=== PATIENT | female | born 1935 | race Caucasian/White ===

== ENCOUNTER 2020-01-06 10:01 | Outpatient (CLI) | payer MEDICARE, SELFPAY ==
--- NOTE | 2020-01-06 | XR_ITS ---
WS: [id number] Bone mineral density performed on a [employer], 01/06/2020 Clinical data: POST MENOPAUSAL ESTROGEN DEFICIENCY Findings: The first 4 lumbar vertebral bodies demonstrated the bone mineral density of 0.984 g/cm2 for a young adult T score of -1.6. Measurement of the left hip reveals a bone mineral density of 0.552 g/cm2 with a young adult T score of -3.6. Measurement of the right hip reveals the bone mineral density of 0.623 g/cm2 for young adult T score of -3.1. XR/XR DEXA axial skeleton* [id number] Impression: 1. Osteopenia of the lumbar spine. 2. Osteoporosis of both hips.
== END 2020-01-06 10:02 | disposition home or self-care (01) ==
LOC: RADWPI 10:08
PROVIDERS: PCP Family Medicine; Visit Provider Family Medicine
DX: N95.1 Menopausal and female climacteric states (principal); M81.0 Age-related osteoporosis without current pathological fracture; M85.88 Other specified disorders of bone density and structure, other site
CPT/HCPCS: 77080

== ENCOUNTER 2020-04-01 10:49 | Outpatient (CLI) | payer MEDICARE, SELFPAY ==
--- NOTE | 2020-04-01 10:54 | MM_ITS ---
WS: [id number] BILATERAL DIGITAL SCREENING MAMMOGRAM WITH CAD CLINICAL INFORMATION: SCREENING HISTORY: Screening mammogram. No current complaints. COMPARISON: None. TECHNIQUE: Bilateral CC and MLO views. FINDINGS: Fatty-replaced breasts bilaterally. No suspicious focal mass, asymmetry, calcifications, or lead enterprise architect ural distortion. No evidence of malignancy. Punctate and lucent centered calcifications. Vascular festus cification. MM/[place] [id number] IMPRESSION: BI-RADS: 2-Benign FOLLOW UP: 1 Year Follow-up Recommend return to annual screening mammography.
== END 2020-04-01 10:50 | disposition home or self-care (01) ==
LOC: RADSHAW 10:51
PROVIDERS: PCP Family Medicine; Visit Provider Family Medicine
DX: Z12.31 Encounter for screening mammogram for malignant neoplasm of breast (principal)
CPT/HCPCS: 77067

== ENCOUNTER 2020-04-07 14:36 | Outpatient (CLI) | payer MEDICARE, SELFPAY ==
[2020-04-07 14:55] VITALS: BP 148/76; PULSE 82; RESP 18; TEMP 36.8; O2SAT 98
[2020-04-07] MEDS: denosumab 60 mg SDV SUBCUT (15:01)
[2020-04-07 15:17] VITALS: BP 136/86; PULSE 78; RESP 18; TEMP 36.9; O2SAT 95
== END 2020-04-07 14:37 | disposition home or self-care (01) ==
PROVIDERS: PCP Family Medicine; Visit Provider Family Medicine
DX: M81.0 Age-related osteoporosis without current pathological fracture (principal)
CPT/HCPCS: 96372; J0897

== ENCOUNTER 2020-08-16 10:43 | Day surgery (SDC) | payer MEDICARE, SELFPAY ==
--- NOTE | 2020-08-16 10:31 | W.PM.OPSFHP ---
Same Day Surgery H&P Indication for Procedure/HPI DATE OF PROCEDURE: August 16, 2020 CHIEF COMPLAINT/INDICATIONFOR SURGICAL PROCEDURE: Difficulty in swallowing PREOP DIAGNOSIS: Dysphagia/FOOD impaction PLANNED PROCEDRUE: Operation Date: 08/16/20 12:00 Proposed Procedures p EGD R13.10 41311(Not Applicable) - Jeronimo Conrad MD This is a pleasant 85 years old female patient with history of chronic dysphagia. Apparently over the past couple of weeks got worse and yesterday she was having some pork pull for supper and she had one bite and afterwards she had a problem swallowing but she is able to keep her own saliva. Patient was seen before in my practice and she does report history of dentures that they are well fitting and she undergone a modified barium swallow back in 2018 that did show; 1. No tania aspiration was evident. Small amount of microaspiration not completely excluded as there was significant laryngeal penetration and pharyngeal residue. 2. Large hiatal hernia. 3. Esophageal dysmotility and poor emptying of the esophagus. Patient was seen and evaluated by Dr. Booth as he did approach me today because of his concerns about the patient and were able to have the patient come in today for further evaluation and endoscopy. Patient reports no history of hematemesis or hemoptysis, patient denies any other constitutional symptoms. She reports that she had stretch of her esophagus last time was done 4 years ago over [facility] ROS All systems have been reviewed negative except as per the above or per problem list Medications/Allergies* Home Medications Medication Instructions Recorded Confirmed Type acetaminophen [Tylenol] 325 mg PO QID PRN 08/16/20 08/16/20 History cetirizine [Zyrtec] 5 mg PO DAILY 08/16/20 08/16/20 History clonazepam 0.5 mg PO DAILY 08/16/20 08/16/20 History pantoprazole 40 mg PO DAILY 08/16/20 08/16/20 History Allergies/Adverse Reactions Allergy/AdvReac Type Severity Reaction Status Date / Time No Known Allergies Allergy Verified 08/16/20 12:24 Pertinent Exam Findings alert, oriented x 3, clear to auscultation bilaterally (No evidence of surgical emphysema or crepitus), regular rate & rhythm and procedure specific exam findings Recommendations Surgery/Procedure today (EGD with possible biopsy and possible food disimpaction and possible balloon dilation) Other Plans: Plan of care; After thorough history and physical examination and reviewing the chart, plan to perform a diagnostic esophagogastroduodenoscopy with possible biopsy with possible food disimpaction and possible balloon dilation in the GI lab. I discussed with the patient in detail the risk,benefits,alternatives and indications.The risk of aspiration, bleeding, soft tissue injury, perforation of the stomach/esophagus and other potential concomitant complications were explained to the patient in details,aslo the potential need for Thoracic and or Abdominal surgery to repair any complications.The patient understood this well and did agree to proceed. Rationale was carefully and clearly discussed with the patient.Appropriate informed consent have been reviewed and signed All questions have been answered and all concerns have been addressed to patient's satisfaction. Coding Level of Care Code Acute [employer] for Delia Hammer
[2020-08-16 11:31] VITALS: BMI 20.9
--- NOTE | 2020-08-16 11:56 | XR_ITS ---
WS: [id number] Exam: XR chest 2V* [id number] Date/Time of Exam: 08/16/2020 11:56 AM Reason For Exam: FOOD IMPACTION Comparison 05/19/2006. There is atelectasis in the left lower lobe. No infiltrates are seen. The lungs are fully expanded. L arge hiatal hernia. Cardiomediastinal structures are otherwise normal in appearance. Regional bony el ements are intact. XR/XR chest 2V* [id number] IMPRESSION: 1. Left lower lobe atelectasis. 2. Large hiatal hernia.
[2020-08-16] MEDS: sodium chloride 0.9% 1,000 ML 30 ML IV (12:06)
--- NOTE | 2020-08-16 13:28 | ANES.PREANE2 ---
Pre-Anesthetic Assessment Pre-Anesthetic Assessment: Height/Weight: Height 1.6 m Weight 53.524 kg Preop Diagnosis: Dysphagia/FOOD impaction Proposed Procedure: Operation Date: 08/16/20 12:00 Proposed Procedures p EGD R13.10 65083(Not Applicable) - Jeronimo Conrad MD Was Beta Edis taken within 24 hours: N/A Was Clonidine taken within 24 hours: N/A Last intake: Intake Last Liquid Date 08/15/20 Last Solid Date 08/15/20 Social: Social History: Tobacco (h/o smoking quit 30 yrs ago) and No alcohol Exam: Pre-Anes Outpt Exam: alert, oriented x 3 and regular rate & rhythm Airway: Submandibular: WNL Cervical ROM: WNL MP: 2 Dentition: False GI: GI: GERD Neuropsych: Neuropsych: Anxiety Anesthetic Plan: ASA status: 3 Anesthesia: General Risk of > 500 ml blood loss (7ml/kg in children): No Meds/Allergies Current Medications: Current Medications Generic Name Dose Route Start Last Admin Trade Name Freq PRN Reason Stop Dose Admin Sodium Chloride 1,000 mls @ 30 ml s/hr 08/16/20 11:45 08/16/20 12:06 Sodium Chloride 0.9% IV 08/17/20 11:44 30 mls/hr .Q24H JOSEPHINE Administration Data Anesthesia Cardiac Studies: No Data to Display
[2020-08-16 14:15] VITALS: BP 115/67; PULSE 79; RESP 18; TEMP 36.3; O2SAT 98
[2020-08-16 14:27] VITALS: BP 135/82; PULSE 78; RESP 18; O2SAT 98
--- NOTE | 2020-08-16 14:45 | ANE.PACU2 ---
Inpatient post-anesthesia follow up: Airway intact: Yes Vital signs: Temperature 97.4 F Pulse Rate 78 Respiratory Rate 18 Blood Pressure 135/82 Pulse Oximetry 98 Oxygen Delivery Me thod Room Air Oxygen Flow Rate 4 Fraction of Inspir ed Oxygen Hydration adequate: Yes Nausea and vomiting: No Pain level: 1 Mental status: Baseline
== END 2020-08-16 15:01 | disposition home or self-care (01) ==
PROVIDERS: PCP Family Medicine; Visit Provider Surgery
PROC: 0DJ08ZZ Inspection of Upper Intestinal Tract, Via Natural or Artificial Opening Endoscopic (ICD-10-PCS; CPT 43235; principal; 2020-08-16 12:00)
DX: R13.10 Dysphagia, unspecified (principal); T18.128A Food in esophagus causing other injury, initial encounter; K44.9 Diaphragmatic hernia without obstruction or gangrene; K21.9 Gastro-esophageal reflux disease without esophagitis; F41.9 Anxiety disorder, unspecified
CPT/HCPCS: 43239; 43249; 71046; 88305; 96360; 96361; J0330; J2370; J2405; J2704; J7030

== ENCOUNTER 2021-12-20 18:58 | Emergency (ER) | payer MEDICARE, SELFPAY ==
[2021-12-20 19:35] VITALS: BP 150/99; PULSE 98; RESP 16; TEMP 36.6; O2SAT 96; BMI 18.6
[2021-12-20 20:12] VITALS: BP 127/98; PULSE 100; RESP 24; O2SAT 95
--- NOTE | 2021-12-20 20:46 | CTR_ITS ---
PROCEDURE INFORMATION: Exam: CT Neck Without Contrast Exam date and time: 12/20/2021 9:06 PM Age: 86 years old Clinical indication: Dysphagia / difficulty swallowing; Additional info: Globus sensation TECHNIQUE: Imaging protocol: Computed tomography of the neck without contrast. Radiation optimization: All CT scans at this facility use at least one of these dose optimization techniques: automated exposure control; mA and/or kV adjustment per patient size (includes targeted exams where dose is matched to clinical indication); or iterative reconstruction. COMPARISON: CR FL barium swallow modifd [id number] 04/16/2017 1:55 PM RADIATION DOSE METRICS: Total DLP (mGy-cm): 228.76 FINDINGS: Paranasal sinuses: Scattered mucosal thickening in the ethmoid sinuses. Dental: The patient is edentulous. Pharynx: Unremarkable. No significant tonsillar enlargement. Larynx: Unremarkable. Epiglottis is normal. Prevertebral and retropharyngeal spaces: Unremarkable. Salivary glands: Normal. Glands are normal in size. Thyroid: The thyroid is small. There is a 0.7 cm low-density nodule or cyst in the left lobe of the thyroid. Follow-up is not indicated given the patient's age. Lymph nodes: Unremarkable. No lymphadenopathy. Trachea: The airway is widely patent. Lungs: There is subsegmental atelectasis in the left lower lobe near the hernia. Mild centrilobular emphysema. Pleural spaces: There are scattered noncalcified pleural plaques. Bones/joints: Mild chronic degenerative changes in the cervical spine. There is also a high-grade but likely chronic fracture of the T8 vertebral body with 3 mm of bony retropulsion. Vasculature: There are a few incidental gas droplets in the cavernous sinuses, most likely from recent IV placement. Moderate calcified plaque in both carotid bifurcations. Soft tissues: In the left posterior lower cervical subcutaneous fat there is a 7 mm soft tissue nodule. A large hiatus hernia contains most the stomach and measures 12 x 8 cm in axial size and extends beyond the limits of the scan. There is some gas and fluid within the hernia but no evidence of a significant obstruction. CT/CT neck wo con [id number] IMPRESSION: 1. Large hiatus hernia with gas and fluid. No high-grade obstruction, possibly low-grade obstruction. 2. High-grade T8 fracture is probably chronic. Mild bony retropulsion. 3. Other chronic findings as described COMMENTS: Consistent with the [employer]'s Incidental Findings Committee white paper (J Am Beverly Radiol 2015): In patients aged 35 years and older with an incidental thyroid nodule equal to or greater than 1.[address], MRI or extrathyroidal US, further evaluation with dedicated thyroid US is recommended for patients with normal life expectancy and without comorbidities. For smaller nodules without suspicious features, no further evaluation or follow up is recommended.
--- NOTE | 2021-12-20 20:47 | ED_ITS ---
HPI - General Adult General: Chief complaint: General Medical Stated complaint: can't swallow food or liquid Time Seen by Provider: 12/20/21 20:24 Source: patient and family Mode of arrival: ambulatory Limitations: no limitations History of Present Illness: This patient comes to the emergency department because she feels like she cannot swallow normally. She apparently has had these symptoms in the past and has had them most recently over the past several days. She seen her primary care clinic twice over the past 2 days where she had an evaluation and was given a steroid shot today. States that she feels like she has a lot of drainage and has been hoarse over the past 2 weeks. She has had a longstanding history of recurrent yeast infections, acid reflux as well as distal esophageal narrowing this required dilatation however she does not feel as if the symptoms she is currently having are related to her esophageal issues its more in her throat. She denies any choking sensation, foreign body sensation or inability to turn her neck etc. She denies any fevers or chills. No trauma etc. Associated symptoms: Deny chest pain, dyspnea, headache(s), nausea, rash, palpitations or vomiting Review of Systems Const: Denies: fever(s), chills or body aches Eyes: Denies: change in vision ENMT: Reports: throat pain, odynophagia, hoarseness, nasal discharge and post nasal drip; Denies: uvular edema or sinus pain Card: Denies: chest pain, palpitations or irregular heart rhythm Resp: Denies: dyspnea, productive cough or non-productive cough GI: Denies: abdominal pain, nausea or vomiting : Denies: flank pain, difficulty voiding or dysuria Musc: Denies: back pain, extremity pain or extremity swelling Skin/Breast: Denies: rash Neuro: Denies: headache(s), numbness in extremities or weakness in extremities Endo: Denies: polyuria or polydipsia Bhanu/Lymph: Denies: easy bruising PFSH ED PFSH: Medical History Esophageal stricture Hiatal hernia Social History Quit status (tobacco): has quit using tobacco Second hand smoke exposure: No Alcohol intake: never Lives independently: Yes Physical Exam Narrative: EXAM NARRATIVE: Patient is a thin elderly female who speak in rapid voice which is somewhat hoarse and tone. He makes good eye contact. Const: COMMON NORMALS: no acute distress, patient oriented x3 and alert GENERAL APPEARANCE: comfortable and anxious NUTRITIONAL APPEARANCE: thin HENMT: COMMON NORMALS: normocephalic, atraumatic, Normal nasal mucous membranes and turbinates present and moist oral mucous membranes HEAD & SCALP: normocephalic and atraumatic NOSE: Normal nasal mucous membranes and turbinates present THROAT: no uvular edema OTHER: Lamination oropharynx reveals to be grossly normal appearance without exudate. Uvula is midline and not enlarged. There is no pharyngeal masses noted. Her tongue is freely mobile without any induration or swelling. She has dentures both upper and lower. There is evidence of significant mucus pooling in the posterior oropharynx. Is observed to initiate swallowing without difficulty. Eye: COMMON NORMALS: Equal, round and reactive pupils present and EOMs intact bilaterally PUPIL: Yes Equal, round and reactive pupils present Neck/C-Spine: COMMON NORMALS: full ROM, no lymphadenopathy, supple, Thyroid normal and No carotid bruits THYROID: Thyroid normal OTHER: No palpable masses in the neck. With swallowing palpation of her congeal area reveals normal movement. Chest: COMMONS NORMALS: normal inspection of the chest Resp: COMMON NORMALS: normal respiratory effort, No use of accessory muscles and clear to auscultation bilaterally AUSCULTATION: clear to auscultation bilaterally Cardio: COMMON NORMALS: regular rate, regular rhythm, No murmurs present (Cardio) and Peripheral pulses 2+ throughout RATE: regular rate RHYTHM: regular rhythm PERIPHERAL PULSES: Peripheral pulses 2+ throughout GI: COMMON NORMALS: Normal to inspection, nondistended, normoactive bowel sounds present, Soft to palpation and non-tender PALPATION: Yes Soft to palpation : COMMON NORMALS: Yes no CVA tenderness BLADDER/KIDNEY EXAM: Yes no CVA tenderness Back/Pelvis: COMMON NORMALS: no CVA tenderness, thoracic and lumbar spine normal to inspection and no thoracic nor lumbar tenderness Extremity: COMMON NORMALS: normal to inspection, full ROM, no calf tenderness and no pedal edema Neuro: COMMON NORMALS: patient oriented x3, moves all extremities, no focal motor deficits and no sensory deficits noted SENSORIUM/ORIENTATION: Yes alert CRANIAL NERVES: Yes CN normal except as noted Psych: COMMON NORMALS: mental status grossly normal Skin: COMMON NORMALS: no rashes or lesions noted, no wounds and turgor normal GENERAL SKIN EXAM: no rashes or lesions noted and turgor normal Course Reevaluation(s): Reevaluation #1: Patient remains clinically stable. I shared the results of her CT scan with both the patient and her daughter. The more that I interacted with this patient is becomes obvious that there is a significant emotional component to her subjective symptoms. Her CT scan was very reassuring and there is no signs of obstruction mechanically abscess mass etc. He does have a hiatal hernia which is a known feature. Further discussion reveals that she is been very stressed recently over the past few weeks particularly the past couple days because of a recent move. She apparently sleeps on her couch and also does not drink much in the way of water on a daily basis. I shared with her that it is important for her to increase her water intake as well as continue on her other usual medications. We will although I am not confident that she has thrush she has some erythema and and some appearance of her oropharynx with may suggest that condition although she does not take chronic steroids nor does she use nasal steroids. Avoid switch her to an oral antifungal as apparently she was prescribed antifungal tablets which may not have the beneficial or desired effect. She is stable at this time to be discharged home. I encouraged her to use liquid diet avoid hot and cold liquids as well as carbonated beverages. Time: 22:38 Vital Signs: Vital signs: Vital Signs Temperature 97.8 F 12/20/21 19:35 Pulse Rate 84 12/20/21 21:30 Respiratory Rate 25 H 12/20/21 21:30 Blood Pressure 127/79 12/20/21 21:30 Pulse Oximetry 90 12/20/21 21:30 Oxygen Delivery Me thod 12/20/21 21:30 MDM - General Adult Medical Decision Making This patient comes to emergency department with a history of subjective swallowing difficulties. Clinical work-up and radiographic work-up do not reveal any findings that suggest mass-effect, or other physical concerning findings at this time. Her clinical picture history and examination strongly suggest a emotional component related to her physical symptoms. We discussed potential changes in diet etc. and close follow-up with her primary care doctor. We also discussed return precautions with both she and her daughter. Stable at this time. Lab Data I reviewed the patient's lab results. Radiology Impressions Neck CT 12/20/21 20:46 IMPRESSION: 1. Large hiatus hernia with gas and fluid. No high-grade obstruction, possibly low-grade obstruction. 2. High-grade T8 fracture is probably chronic. Mild bony retropulsion. 3. Other chronic findings as described COMMENTS: Consistent with the [employer]'s Incidental Findings Committee white paper (J Am Beverly Radiol 2015): In patients aged 35 years and older with an incidental thyroid nodule equal to or greater than 1.[address], MRI or extrathyroidal US, further evaluation with dedicated thyroid US is recommended for patients with normal life expectancy and without comorbidities. For smaller nodules without suspicious features, no further evaluation or follow up is recommended. Discharge Plan Discharge Patient Disposition: Home Clinical Impression: Odynophagia Condition: Stable Prescriptions: New nystatin 100,000 unit/mL suspension 2.5 ml PO QID 14 Days Qty: 140 0RF Rx Instructions: swish and swallow No Action acetaminophen [Tylenol] 325 mg Tablet 325 mg PO QID PRN (Reason: Pain) montelukast 5 mg tablet,chewable 5 mg PO BID fluconazole 200 mg tablet 200 mg PO DAILY omeprazole 40 mg capsule,delayed release(DR/EC) 40 mg PO BID buspirone 10 mg tablet 5 mg PO BID fluticasone propionate 50 mcg/actuation spray,suspension 2 spray INTRANASAL DAILY Discharge Orders: Discharge ED (Routine); Ordered 12/20/21 Ordered By: Moy Bermeo Referrals: Delmar Ni MD [Primary Care Provider] - 4-7 days (ER follow-up for odynophagia) Discharge Diet: Advance as tolerated and Full LIquid Discharge Activity: Increase activity as tolerated Patient Instructions: Opioid Safety, Pain Management Activity Restrictions/Additional Instructions: We have provided a prescription for liquid antifungal to use for the next 2 weeks. Also encourage you to drink at least 2 quarts of water daily. Also increase your protein calorie intake with using things like Ensure and other liquid protein shakes. Call your primary care doctor for follow-up and or referral to neurosurgery spine physician as indicated. If you develop worsening symptoms or unsuccessful with eating or drinking return to this or the nearest emergency department. Coding Level of Care Code ED Secondary Set Up Man for Delia Fwd Exam Comprehensive
[2021-12-20 21:30] VITALS: BP 127/79; PULSE 84; RESP 25; O2SAT 90
[2021-12-20] MEDS: LORazepam 2 mg/mL oral liquid (mL) 1 MG PO (22:55)
[2021-12-20 23:02] VITALS: BP 143/80; PULSE 86; RESP 22; O2SAT 93
== END 2021-12-20 23:09 | disposition home or self-care (01) ==
PROVIDERS: Emergency Provider Emergency Medicine; PCP Family Medicine
DX: R13.10 Dysphagia, unspecified (principal); Z87.891 Personal history of nicotine dependence
CPT/HCPCS: 70490; 99284; J9352

== ENCOUNTER 2022-01-08 11:36 | Outpatient (CLI) | payer MEDICARE, SELFPAY ==
--- NOTE | 2022-01-08 11:46 | XR_ITS ---
WS: [id number] SCREENING DEXA SCAN [employer] CLINICAL INFORMATION: POSTMENOPAUSAL COMPARISON: 2019 FINDINGS: The L1-L4 bone mineral density measures 0.916. This corresponds to a T score score of -2.4 and Z scor e of 0.1. Left femoral neck bone mineral density measures 0.537 g/cm2. This corresponds to a T score of -3.7 an d Z score of -0.9. Right femoral neck bone mineral density measures 0.643 g/cm2. This corresponds to a T score -2.9of an d Z score of -0.1. Mean femoral neck bone mineral density measures 0.590 g/cm2. This corresponds to a T score of -3.3 an d Z score of -0.5. XR/XR DEXA axial skeleton* [id number] IMPRESSION: Osteopenia lumbar spine at the upper end of the range approaching osteoporosis. Osteoporosis femoral necks. Patient's FRAX calculated 10 year probability for major osteoporotic fracture i s 23.2 % and osteoporotic hip fracture is 8.7%. Bone mineral density in the lumbar spine has decreased -8.7% since 2020. Bone mineral density in the femoral necks has increased 0.5% since 2020
== END 2022-01-08 11:37 | disposition home or self-care (01) ==
LOC: RAD 11:39
PROVIDERS: PCP Family Medicine; Visit Provider Nurse Practitioner Family
DX: Z78.0 Asymptomatic menopausal state (principal); M81.0 Age-related osteoporosis without current pathological fracture; M85.88 Other specified disorders of bone density and structure, other site
CPT/HCPCS: 77080

== ENCOUNTER 2022-03-26 10:26 | Outpatient (CLI) | payer MEDICARE, SELFPAY ==
--- NOTE | 2022-03-26 10:40 | CT_ITS ---
WS: [id number] CT NECK TECHNIQUE: Contrast-enhanced CT of the neck with coronal and sagittal reformatted images. CLINICAL INFORMATION: DYSPHAGIA COMPARISON: None. DLP: 184.[address] [facility] use at least one of these dose optimization techniques: automated e xposure control; mA and/or kV adjustment per patient size (includes targeted exams where dose is matc hed to clinical indication); or iterative reconstruction. FINDINGS: Paranasal sinuses and mastoid air cells well aerated. Mild mucosal thickening ethmoid air cells. Norm al posterior nasopharynx. Normal parapharyngeal fat. Parotid glands are normal. Submandibular glands are normal. No evidence of supraglottic or glottic mass. Ballooning of the RIGHT laryngeal ventricle suspicious for vocal cord paralysis. This appears stable from previous. Partially visualized large esophageal hiatal hernia with intrathoracic stomach. This appears similar to previous. Small bilateral thyroid nodules. Moderate to severe RIGHT carotid bulb calcification wit h ICA stenosis.This can be further evaluated with ultrasound. Mild LEFT carotid bulb calcification. Moderate spondylitic changes cervical spine. No cervical lymphadenopathy. Stable nodule in the subcut aneous soft tissues LEFT lower neck measuring [address]/CT neck w con* [id number] IMPRESSION: 1. Large esophageal hiatal hernia with partial intrathoracic stomach partially visualized. This is similar to previous. 2. Ballooning of the RIGHT laryngeal ventricle suspicious for vocal cord paral ysis unchanged from previous. 3. Otherwise no evidence of supraglottic or glottic mass. 4. Normal salivary glands. 5. No cervical lymphadenopathy. 6. Moderate to severe RIGHT carotid bulb atheromatous disease with ICA stenosi s. This can be further with ultrasound. 7. No other significant changes compared to previous.
[2022-03-26] MEDS: iohexol 350 mg/mL 500 mL Btl (per mL) IV (11:01)
[2022-03-26 11:10] LABS: Blood Urea Nitrogen 4 mg/dL (8-23)
== END 2022-03-26 10:27 | disposition home or self-care (01) ==
LOC: RAD 10:29
PROVIDERS: PCP Family Medicine; Visit Provider Specialist
DX: R13.10 Dysphagia, unspecified (principal)
CPT/HCPCS: 70491; 82565; 84520; Q9967

== ENCOUNTER 2022-04-05 09:45 | Outpatient (CLI) | payer MEDICARE, SELFPAY ==
--- NOTE | 2022-04-05 09:55 | FL_ITS ---
WS: [id number] Barium swallow and esophagram, 04/05/2022 Clinical Data: DYSPHAGIA Comparison: None. Fluoroscopy time: 1min [id number] # of spot films: 6 Findings: The patient swallowed the thick and thin barium, and it flowed through the hypopharynx without hesita tion. No stricture, mass, polyp or erosion was seen. There is no penetration or aspiration. The barium entered the esophagus and there was poor peristalsis. There is a large paraesophageal hiat al hernia.. The entire stomach is located above the diaphragm. In the distal esophagus there was no s tricture, mass, polyp, erosion, ulceration or fistula. There was reflux occurring to the level of the thoracic inlet. FL/FL barium swallow [id number] Impression: 1. Large paraesophageal hiatal hernia. 2. Reflux which occurs to the level of the thoracic inlet. 3. Poor esophageal motility.
== END 2022-04-05 09:46 | disposition home or self-care (01) ==
LOC: RAD 09:48
PROVIDERS: PCP Family Medicine; Visit Provider Specialist
DX: R13.10 Dysphagia, unspecified (principal)
CPT/HCPCS: 74220

== ENCOUNTER → 2022-08-21 09:29 | Outpatient (BNVA) | payer MEDICARE, SELFPAY | PROVIDERS: PCP Family Medicine; Visit Provider Surgery | DX: R13.10 Dysphagia, unspecified (principal) | CPT/HCPCS: 99213 ==

== ENCOUNTER 2022-09-19 06:53 | Day surgery (SDC) | payer MEDICARE, SELFPAY ==
[2022-09-18 08:26] VITALS: BMI 22.4
[2022-09-19 07:07] VITALS: BP 177/107; PULSE 80; RESP 18; TEMP 36.3; O2SAT 94
[2022-09-19] MEDS: sodium chloride 0.9% 1,000 ML 30 ML IV (07:20)
--- NOTE | 2022-09-19 07:42 | ANES.PREANE2 ---
Pre-Anesthetic Assessment Height/Weight: Height 1.55 m Weight 53.977 kg Temp Pulse Resp BP Pulse Ox O2 Del Method 97.3 F L 80 18 177/107 94 Room Air 09/19/22 07:07 09/19/22 07:07 09/19/22 07:07 09/19/22 07:07 09/19/22 07:07 09/19/22 07:07 Preop Diagnosis: Dysphagia Operation Date: 09/19/22 08:00 Proposed Procedures p EGD Dilation W/ Balloon(Not Applicable) - Adria Nguyen DO Familial anesthetic complications: none Was Beta Edis taken within 24 hours: N/A Was Clonidine taken within 24 hours: N/A Last intake: Intake Last Liquid Date 09/18/22 Last Liquid Time 23:00 Last Solid Date 09/18/22 Last Solid Time 17:00 Social No alcohol and No tobacco Airway Submandibular: within normal limits Cervical ROM: within normal limits Mallampati: Class II Dentition: false Pulmonary None reported CV/HEM None reported None reported Hepatic None reported GI Gastroesophageal Reflux Disease Dysphagia Metabolic None reported Musc/skel None reported Neuropsych Deficit (memory deficit recently) Anesthetic Plan ASA status: 2 Anesthesia: MAC Medications/Allergies Home Medications Medication Instructions Recorded Confirmed Last Taken Type acetaminophen 325 mg tablet 325 mg PO QID PRN Pain 08/16/20 09/19/22 09/18/22 History (Tylenol) buspirone 10 mg tablet 5 mg PO BID 12/20/21 09/19/22 09/17/22 History fluticasone propionate 50 2 spray intranasal DAILY 12/20/21 09/19/22 09/18/22 History mcg/actuation nasal spray,suspension montelukast 5 mg chewable tablet 5 mg PO BID 12/20/21 09/19/22 09/18/22 History omeprazole 40 mg capsule,delayed 40 mg PO BID 12/20/21 09/19/22 09/18/22 History release Allergies Allergy/AdvReac Type Severity Reaction Status Date / Time Penicillins Allergy Unknown Verified 09/19/22 07:04 Current Medications Generic Name Dose Route Start Last Admin Trade Name Freq PRN Reason Stop Dose Admin Sodium Chloride 1,000 mls @ 30 mls/hr 09/19/22 07:00 09/19/22 07:20 Sodium Chloride 0.9% IV 30 mls/hr .Q24H JOSEPHINE Administration PFSH Anesthesia Medical History Esophageal stricture Hiatal hernia Social History Quit status (tobacco): has quit using tobacco Second hand smoke exposure: No Alcohol intake: never Substance/Drug Use: never Lives independently: Yes Data Anesthesia Cardiac Studies: No Data to Display
--- NOTE | 2022-09-19 08:13 | W.PM.OPSUD ---
Surgery/Procedure H&P Update DATE OF PROCEDURE: September 19, 2022 DATE H&P PERFORMED: 08/21/22 H&P UPDATE INFORMATION: I have reviewed H&P completed within last 30 days, I have examined patient prior to procedure and No changes to prior documentation PREOP DIAGNOSIS: Dysphagia PLANNED PROCEDURE: Operation Date: 09/19/22 08:00 Proposed Procedures p EGD Dilation W/ Balloon(Not Applicable) - Adria Nguyen DO
[2022-09-19 08:45] VITALS: BP 128/70; PULSE 73; RESP 14; TEMP 36.4; O2SAT 98
[2022-09-19 08:57] VITALS: BP 129/65; PULSE 75; RESP 18; O2SAT 91
[2022-09-19 09:04] VITALS: BP 152/83; PULSE 75; RESP 18; O2SAT 93
--- NOTE | 2022-09-19 14:55 | ANE.PACU2 ---
Inpatient post-anesthesia follow up: Airway intact: Yes Vital signs: Temperature 97.5 F Pulse Rate 75 Respiratory Rate 18 Blood Pressure 152/83 Pulse Oximetry 93 Oxygen Delivery Me thod Room Air Oxygen Flow Rate 6 Fraction of Inspir ed Oxygen Hydration adequate: Yes Nausea and vomiting: No Pain level: 2 Mental status: Baseline
== END 2022-09-19 09:18 | disposition home or self-care (01) ==
PROVIDERS: PCP Family Medicine; Visit Provider Surgery
DX: R13.10 Dysphagia, unspecified (principal); K21.9 Gastro-esophageal reflux disease without esophagitis; Z87.891 Personal history of nicotine dependence; K22.2 Esophageal obstruction; K44.9 Diaphragmatic hernia without obstruction or gangrene
CPT/HCPCS: 43239; 43249; 88305; 88342; J2704; J7030

== ENCOUNTER 2022-10-24 06:51 | Day surgery (SDC) | payer MEDICARE, SELFPAY ==
[2022-10-24] VITALS (7 sets, daily range): BP systolic 109–154; BP diastolic 68–112; PULSE 70–92; RESP 16–20; TEMP 36.3–36.4; O2SAT 93–100
[2022-10-24] MEDS: sodium chloride 0.9% 1,000 ML 30 ML IV (07:07)
--- NOTE | 2022-10-24 07:28 | ANES.PREANE2 ---
Pre-Anesthetic Assessment Height/Weight: Height 1.55 m Weight 52.163 kg Temp Pulse Resp BP Pulse Ox O2 Del Method 97.5 F L 91 18 143/112 94 Room Air 10/24/22 07:05 10/24/22 07:05 10/24/22 07:05 10/24/22 07:05 10/24/22 07:05 10/24/22 07:05 Operation Date: 10/24/22 08:00 [place] Procedures p [id number] EGD with Balloon Dial R13.10(Not Applicable) - Adria Nguyen, DO Was Beta Edis taken within 24 hours: N/A Was Clonidine taken within 24 hours: N/A Last intake: Intake Last Liquid Date 10/23/22 Last Liquid Time 23:00 Last Solid Date 10/23/22 Last Solid Time 18:00 Last Intake: 22:00 Social No alcohol and No tobacco Exam alert and oriented x 3 Airway Submandibular: within normal limits Cervical ROM: within normal limits Mallampati: Class I Dentition: false History/ROS No significant history except as noted Pulmonary None reported CV/HEM None reported None reported Hepatic None reported GI Gastroesophageal Reflux Disease Metabolic None reported Musc/skel None reported Neuropsych None reported Anesthetic Plan ASA status: 2 Anesthesia: MAC Risk of > 500 ml blood loss (7ml/kg in children): No Medications/Allergies Home Medications Medication Instructions Recorded Confirmed Last Taken Type acetaminophen 325 mg tablet 325 mg PO QID PRN Pain 08/16/20 10/24/22 09/18/22 History (Tylenol) buspirone 10 mg tablet 5 mg PO BID 12/20/21 10/22/22 10/23/22 History fluticasone propionate 50 2 spray intranasal DAILY 12/20/21 10/22/22 10/23/22 History mcg/actuation nasal spray,suspension montelukast 5 mg chewable tablet 5 mg PO BID 12/20/21 10/22/22 10/23/22 History pantoprazole 40 mg tablet,delayed 40 mg PO BID 14 days #28 tabs 10/11/22 10/22/22 10/23/22 Rx release (Protonix) fluconazole 200 mg tablet 200 mg PO DAILY 10/24/22 10/24/22 10/23/22 History Allergies Allergy/AdvReac Type Severity Reaction Status Date / Time Penicillins Allergy Unknown Verified 10/24/22 07:11 Current Medications Generic Name Dose Route Start Last Admin Trade Name Freq PRN Reason Stop Dose Admin Sodium Chloride 1,000 mls @ 30 mls/hr 10/24/22 07:00 10/24/22 07:07 Sodium Chloride 0.9% IV 10/25/22 06:59 30 mls/hr .Q24H JOSEPHINE Administration PFSH Anesthesia Medical History Esophageal stricture Hiatal hernia Social History Quit status (tobacco): has quit using tobacco Second hand smoke exposure: No Alcohol intake: never Substance/Drug Use: never Lives independently: Yes Data Anesthesia Cardiac Studies: No Data to Display
--- NOTE | 2022-10-24 07:48 | PM.HP ---
Providers/Chief Complaint Primary Care Provider: Delmar Ni MD Chief Complaint: 160076, R13.10 History of Present Illness Padmini Deras is a 87 year old female Medications/Allergies Home Medications Medication Instructions Recorded Confirmed Last Taken Type acetaminophen 325 mg tablet 325 mg PO QID PRN Pain 08/16/20 10/24/22 09/18/22 History (Tylenol) buspirone 10 mg tablet 5 mg PO BID 12/20/21 10/22/22 10/23/22 History fluticasone propionate 50 2 spray intranasal DAILY 12/20/21 10/22/22 10/23/22 History mcg/actuation nasal spray,suspension montelukast 5 mg chewable tablet 5 mg PO BID 12/20/21 10/22/22 10/23/22 History pantoprazole 40 mg tablet,delayed 40 mg PO BID 14 days #28 tabs 10/11/22 10/22/22 10/23/22 Rx release (Protonix) fluconazole 200 mg tablet 200 mg PO DAILY 10/24/22 10/24/22 10/23/22 History Allergies Allergy/AdvReac Type Severity Reaction Status Date / Time Penicillins Allergy Unknown Verified 10/24/22 07:11 PFSH Acute PFSH: Medical History (Updated 10/24/22 @ 07:49 by Adria Nguyen DO) Esophageal stricture GERD (gastroesophageal reflux disease) Hiatal hernia Social History Quit status (tobacco): has quit using tobacco Second hand smoke exposure: No Alcohol intake: never Substance/Drug Use: never Lives independently: Yes Vitals/I&O/Wt Last Vital Signs Temp 97.5 F L 10/24/22 07:05 Pulse 91 10/24/22 07:05 Resp 18 10/24/22 07:05 BP 143/112 10/24/22 07:05 Pulse Ox 94 10/24/22 07:05 O2 Del Method Room Air 10/24/22 07:05 Weight last 48 hrs Weight 115 lb A&P Assessment and plan (1) Dysphagia: Plan EGD with possible balloon dilation The risks and benefits of the procedure, including bleeding, infection, intestinal perforation requiring surgery, missed lesion were explained to the patient. The patient is understanding of the risks and wishes to proceed. Attestations Medical Necessity Statement*: home Coding Level of Care Code Acute Code for Chg Fwd Diagnoses Dysphagia R13.10
[2022-10-24] MEDS: albuterol 2.5 mg/3 mL Neb INHALATION (09:35)
--- NOTE | 2022-10-24 13:29 | ANE.PACU2 ---
Inpatient post-anesthesia follow up: Airway intact: Yes Vital signs: Temperature 97.3 F Pulse Rate 92 Respiratory Rate 18 Blood Pressure 154/87 Pulse Oximetry 93 Oxygen Delivery Me thod Room Air Oxygen Flow Rate 4 Fraction of Inspir ed Oxygen Hydration adequate: Yes Nausea and vomiting: No Pain level: 2 Mental status: Baseline
== END 2022-10-24 10:03 | disposition home or self-care (01) ==
PROVIDERS: PCP Family Medicine; Visit Provider Surgery
DX: K21.9 Gastro-esophageal reflux disease without esophagitis (principal); R13.10 Dysphagia, unspecified; Z87.891 Personal history of nicotine dependence; K22.2 Esophageal obstruction; K29.70 Gastritis, unspecified, without bleeding
CPT/HCPCS: 43249; 94640; J2704; J7030; J7613

== ENCOUNTER → 2022-11-06 09:39 | Outpatient (BNVA) | payer MEDICARE, SELFPAY | PROVIDERS: PCP Family Medicine; Visit Provider Surgery | DX: Z09 Encounter for follow-up examination after completed treatment for conditions other than malignant neoplasm (principal); R13.10 Dysphagia, unspecified | CPT/HCPCS: 99213 ==

== ENCOUNTER 2022-11-21 06:04 | Day surgery (SDC) | payer MEDICARE, SELFPAY ==
[2022-11-19 08:47] VITALS: BMI 20.5
[2022-11-21 06:18] VITALS: BMI 20.5
[2022-11-21 06:21] VITALS: BP 161/92; PULSE 82; RESP 18; TEMP 36.1; O2SAT 95
[2022-11-21] MEDS: sodium chloride 0.9% 1,000 ML 30 ML IV (06:31)
--- NOTE | 2022-11-21 06:36 | ANES.PREANE2 ---
Pre-Anesthetic Assessment Height/Weight: Height 1.55 m Weight 49.442 kg Temp Pulse Resp BP Pulse Ox O2 Del Method 97 F L 82 18 161/92 95 Room Air 11/21/22 06:21 11/21/22 06:21 11/21/22 06:21 11/21/22 06:21 11/21/22 06:21 11/21/22 06:21 Preop Diagnosis: Dysphagia Operation Date: 11/21/22 07:00 Proposed Procedures p [address]183 egd w/balloon dial r13.10(Not Applicable) - Adria Nguyen DO Familial anesthetic complications: None Was Beta Edis taken within 24 hours: N/A Was Clonidine taken within 24 hours: N/A Last intake: Intake Last Liquid Date 11/20/22 Last Liquid Time 22:30 Last Solid Date 11/20/22 Last Solid Time 18:30 Social No alcohol and No tobacco Exam alert, oriented x 3, clear to auscultation bilaterally and regular rate & rhythm Airway Submandibular: within normal limits Cervical ROM: within normal limits Mallampati: Class II Dentition: false History/ROS No significant history except as noted and No significant complaints Pulmonary Exertional Dyspnea CV/HEM Hypertension None reported Hepatic None reported GI Gastroesophageal Reflux Disease (Controlled with medication) Metabolic None reported Musc/skel Lower Back Pain and Osteoarthritis/DJD Neuropsych Anxiety Anesthetic Plan ASA status: 2 Anesthesia: Anesthesia Evaluation, General and MAC Risk of > 500 ml blood loss (7ml/kg in children): No Medications/Allergies Home Medications Medication Instructions Recorded Confirmed Last Taken Type acetaminophen 325 mg tablet 325 mg PO QID PRN Pain 08/16/20 11/19/22 11/20/22 History (Tylenol) buspirone 10 mg tablet 5 mg PO BID 12/20/21 11/19/22 11/20/22 History fluticasone propionate 50 2 spray intranasal DAILY 12/20/21 11/19/22 11/20/22 History mcg/actuation nasal spray,suspension montelukast 5 mg chewable tablet 5 mg PO BID 12/20/21 11/19/22 11/20/22 History fluconazole 200 mg tablet 200 mg PO DAILY 10/24/22 11/19/22 11/20/22 History pantoprazole 40 mg tablet,delayed 40 mg PO BID 14 days #28 tabs 10/24/22 11/19/22 11/20/22 Rx release (Protonix) Allergies Allergy/AdvReac Type Severity Reaction Status Date / Time Penicillins Allergy Unknown Verified 11/19/22 08:49 Current Medications Generic Name Dose Route Start Last Admin Trade Name Freq PRN Reason Stop Dose Admin Sodium Chloride 1,000 mls @ 30 mls/hr 11/21/22 06:15 11/21/22 06:31 Sodium Chloride 0.9% IV 11/22/22 06:14 30 mls/hr .Q24H JOSEPHINE Administration PFS Anesthesia Medical History (Updated 11/06/22 @ 10:12 by Adria Nguyen DO) Anxiety Esophageal stricture GERD (gastroesophageal reflux disease) Hiatal hernia Surgical History (Updated 11/06/22 @ 10:12 by Adria Nguyen DO) History of colonoscopy History of esophagogastroduodenoscopy (EGD) Social History Quit status (tobacco): has quit using tobacco Second hand smoke exposure: No Alcohol intake: never Substance/Drug Use: never Lives independently: Yes Data Anesthesia Cardiac Studies: No Data to Display
--- NOTE | 2022-11-21 07:00 | W.PM.OPSUD ---
Surgery/Procedure H&P Update DATE OF PROCEDURE: November 21, 2022 DATE H&P PERFORMED: 11/06/22 H&P UPDATE INFORMATION: I have reviewed H&P completed within last 30 days, I have examined patient prior to procedure and No changes to prior documentation PREOP DIAGNOSIS: Dysphagia PLANNED PROCEDURE: Operation Date: 11/21/22 07:00 Proposed Procedures p 19523 egd w/balloon dial r13.10(Not Applicable) - Adria Nguyen DO
[2022-11-21 07:21] VITALS: BP 117/65; PULSE 70; RESP 12; TEMP 36.6; O2SAT 96
[2022-11-21 07:32] VITALS: BP 130/69; PULSE 72; RESP 16; O2SAT 94
== END 2022-11-21 07:55 | disposition home or self-care (01) ==
PROVIDERS: PCP Family Medicine; Visit Provider Surgery
DX: R13.10 Dysphagia, unspecified (principal); K22.2 Esophageal obstruction; K29.50 Unspecified chronic gastritis without bleeding; I10 Essential (primary) hypertension; K21.9 Gastro-esophageal reflux disease without esophagitis; Z87.891 Personal history of nicotine dependence; F41.9 Anxiety disorder, unspecified
CPT/HCPCS: 43239; 43249; 88305; 88342; J2704; J7030

== ENCOUNTER → 2022-12-11 10:37 | Outpatient (BNVA) | payer MEDICARE, SELFPAY | PROVIDERS: PCP Family Medicine; Visit Provider Surgery | DX: R13.10 Dysphagia, unspecified (principal); Z09 Encounter for follow-up examination after completed treatment for conditions other than malignant neoplasm | CPT/HCPCS: 99213 ==

== ENCOUNTER 2023-01-11 06:24 | Day surgery (SDC) | payer MEDICARE, SELFPAY ==
[2023-01-11 06:38] VITALS: BP 154/105; PULSE 91; RESP 18; TEMP 36.1; O2SAT 96
[2023-01-11] MEDS: sodium chloride 0.9% 1,000 ML 30 ML IV (06:45)
--- NOTE | 2023-01-11 06:49 | ANES.PREANE2 ---
Pre-Anesthetic Assessment Height/Weight: Height 1.55 m Temp Pulse Resp BP Pulse Ox O2 Del Method 97.0 F L 91 18 154/105 96 Room Air 01/11/23 06:38 01/11/23 06:38 01/11/23 06:38 01/11/23 06:38 01/11/23 06:38 01/11/23 06:38 Preop Diagnosis: dysphagia Operation Date: 01/11/23 07:30 Proposed Procedures p [id number] EGD Dilation W/ Balloon(Not Applicable) - Adria Nguyen DO Familial anesthetic complications: none Last intake: Intake Last Liquid Date 01/10/23 Last Liquid Time 22:00 Last Solid Date 01/10/23 Last Solid Time 18:00 Social No alcohol and No tobacco Exam alert, oriented x 3, clear to auscultation bilaterally and regular rate & rhythm Airway Submandibular: within normal limits Cervical ROM: within normal limits Mallampati: Class II Dentition: false Pulmonary None reported CV/HEM Hypertension (high when she goes to the Dr. mensah today does not check it at home.) None reported Hepatic None reported GI Gastroesophageal Reflux Disease Metabolic None reported Musc/skel Weakness (recent fall- no injuries) Neuropsych Depression Anesthetic Plan ASA status: 2 Anesthesia: MAC Medications/Allergies Home Medications Medication Instructions Recorded Confirmed Last Taken Type acetaminophen 325 mg tablet 325 mg PO QID PRN Pain 08/16/20 01/09/23 01/10/23 History (Tylenol) buspirone 10 mg tablet 5 mg PO BID 12/20/21 01/09/23 01/10/23 History fluticasone propionate 50 2 spray intranasal DAILY 12/20/21 01/09/23 01/10/23 History mcg/actuation nasal spray,suspension montelukast 5 mg chewable tablet 5 mg PO BID 12/20/21 01/09/23 01/10/23 History fluconazole 200 mg tablet 200 mg PO DAILY 10/24/22 01/11/23 01/10/23 History pantoprazole 40 mg tablet,delayed 40 mg PO BID 14 days #28 tabs 10/24/22 01/09/23 01/10/23 Rx release (Protonix) Allergies Allergy/AdvReac Type Severity Reaction Status Date / Time Penicillins Allergy Unknown Verified 11/19/22 08:49 Current Medications Generic Name Dose Route Start Last Admin Trade Name Freq PRN Reason Stop Dose Admin Sodium Chloride 1,000 mls @ 30 mls/hr 01/11/23 06:30 01/11/23 06:45 Sodium Chloride 0.9% IV 01/12/23 06:29 30 mls/hr .Q24H JOSEPHINE Administration PFSH Anesthesia Medical History Anxiety Esophageal stricture GERD (gastroesophageal reflux disease) Hiatal hernia Surgical History History of colonoscopy History of esophagogastroduodenoscopy (EGD) Social History Quit status (tobacco/nicotine): has quit using Second hand smoke exposure: No Alcohol intake: never Substance/Drug Use: never Lives independently: Yes Data Anesthesia Cardiac Studies: No Data to Display
--- NOTE | 2023-01-11 06:53 | PM.HP ---
Providers/Chief Complaint Primary Care Provider: Delmar Ni MD Chief Complaint: R13.10 History of Present Illness Padmini Deras is a 87 year old female Review of Systems General: Reports: 10 or more systems reviewed and unremarkable except in HPI and below Medications/Allergies Home Medications Medication Instructions Recorded Confirmed Last Taken Type acetaminophen 325 mg tablet 325 mg PO QID PRN Pain 08/16/20 01/09/23 01/10/23 History (Tylenol) buspirone 10 mg tablet 5 mg PO BID 12/20/21 01/09/23 01/10/23 History fluticasone propionate 50 2 spray intranasal DAILY 12/20/21 01/09/23 01/10/23 History mcg/actuation nasal spray,suspension montelukast 5 mg chewable tablet 5 mg PO BID 12/20/21 01/09/23 01/10/23 History fluconazole 200 mg tablet 200 mg PO DAILY 10/24/22 01/11/23 01/10/23 History pantoprazole 40 mg tablet,delayed 40 mg PO BID 14 days #28 tabs 10/24/22 01/09/23 01/10/23 Rx release (Protonix) Allergies Allergy/AdvReac Type Severity Reaction Status Date / Time Penicillins Allergy Unknown Verified 11/19/22 08:49 PFSH Acute PFSH: Medical History Anxiety Esophageal stricture GERD (gastroesophageal reflux disease) Hiatal hernia Surgical History History of colonoscopy History of esophagogastroduodenoscopy (EGD) Social History Quit status (tobacco/nicotine): has quit using Second hand smoke exposure: No Alcohol intake: never Substance/Drug Use: never Lives independently: Yes Vitals/I&O/Wt Last Vital Signs Temp 97.0 F L 01/11/23 06:38 Pulse 91 01/11/23 06:38 Resp 18 01/11/23 06:38 BP 154/105 01/11/23 06:38 Pulse Ox 96 01/11/23 06:38 O2 Del Method Room Air 01/11/23 06:38 A&P Assessment and plan (1) Dysphagia: Plan EGD with possible balloon dilation Attestations Medical Necessity Statement*: Home Coding Level of Care Code Acute Code for Chg Fwd Diagnoses Dysphagia R13.10
[2023-01-11 07:40] VITALS: BP 150/82; PULSE 75; RESP 18; TEMP 36.4; O2SAT 92
[2023-01-11 07:50] VITALS: BP 166/90; PULSE 72; RESP 18; O2SAT 94
[2023-01-11 08:00] VITALS: BP 158/96; PULSE 72; RESP 18; O2SAT 95
--- NOTE | 2023-01-11 12:43 | ANE.PACU2 ---
Inpatient post-anesthesia follow up: Airway intact: Yes Vital signs: Temperature 97.5 F Pulse Rate 72 Respiratory Rate 18 Blood Pressure 158/96 Pulse Oximetry 95 Oxygen Delivery Me thod Room Air Oxygen Flow Rate 3.5 Fraction of Inspir ed Oxygen Hydration adequate: Yes Nausea and vomiting: No Pain level: 2 Mental status: Baseline
== END 2023-01-11 08:11 | disposition home or self-care (01) ==
PROVIDERS: PCP Family Medicine; Visit Provider Surgery
DX: R13.10 Dysphagia, unspecified (principal); F41.9 Anxiety disorder, unspecified; K21.9 Gastro-esophageal reflux disease without esophagitis; K22.2 Esophageal obstruction; I10 Essential (primary) hypertension
CPT/HCPCS: 43249; J2704; J7030

== ENCOUNTER 2023-01-14 23:42 | Emergency (ER) | payer MEDICARE, SELFPAY ==
[2023-01-14 23:43] VITALS: BP 160/112; PULSE 81; RESP 18; O2SAT 95; BMI 20.7
--- NOTE | 2023-01-14 23:49 | XRR_ITS ---
PROCEDURE INFORMATION: Exam: XR Left Shoulder Exam date and time: 01/14/2023 11:53 PM Age: 87 years old Clinical indication: Injury or trauma; Fall; Blunt trauma (contusions or hematomas); Shoulder; Left; Additional info: Fall injury TECHNIQUE: Imaging protocol: Radiologic exam of the left shoulder. Views: 2 or more views. COMPARISON: CT neck w con* [id number] 03/26/2022 11:12 AM FINDINGS: Bones/joints: Acute fracture through the proximal left humeral neck, with extension to the inferior aspect of the greater tuberosity. No other fracture identified. No dislocation. Soft tissues: Normal. XR/XR shoulder LT min 2V* [id number] IMPRESSION: Acute fracture through the proximal left humeral neck, with extension to the inferior aspect of the greater tuberosity.
--- NOTE | 2023-01-14 23:49 | CTR_ITS ---
PROCEDURE INFORMATION: Exam: CT Maxillofacial Without Contrast Exam date and time: 01/15/2023 12:21 AM Age: 87 years old Clinical indication: Injury or trauma; Fall; Patient HX: Abrasion to nose; Additional info: Fall injury TECHNIQUE: Imaging protocol: Computed tomography of the face without contrast. Radiation optimization: All CT scans at this facility use at least one of these dose optimization techniques: automated exposure control; mA and/or kV adjustment per patient size (includes targeted exams where dose is matched to clinical indication); or iterative reconstruction. REPORTING DATA: Count of CT and Cardiac NM exams in prior 12 months: This patient has received [address] and 0 known cardiac nuclear medicine studies in the 12 months prior to the current study. COMPARISON: CT head wo con* [id number] 01/15/2023 12:15 AM RADIATION DOSE METRICS: Total DLP (mGy-cm): 658.35 FINDINGS: Orbital cavities: No acute intraorbital abnormality. Globes are intact. Bilateral intra-ocular lens replacement. Bones/joints: No acute fracture. Paranasal sinuses: Opacification of the couple of the ethmoid air cells. Paranasal sinuses are otherwise clear. No air-fluid levels. Soft tissues: Unremarkable. Brain: Visualized intracranial contents demonstrate no acute abnormality. CT/CT facial bones wo con* [id number] IMPRESSION: No acute findings.
--- NOTE | 2023-01-14 23:49 | CTR_ITS ---
PROCEDURE INFORMATION: Exam: CT Head Without Contrast Exam date and time: 01/15/2023 12:15 AM Age: 87 years old Clinical indication: Injury or trauma; Fall; Additional info: Fall injury, facial injury TECHNIQUE: Imaging protocol: Computed tomography of the head without contrast. Radiation optimization: All CT scans at this facility use at least one of these dose optimization techniques: automated exposure control; mA and/or kV adjustment per patient size (includes targeted exams where dose is matched to clinical indication); or iterative reconstruction. REPORTING DATA: Count of CT and Cardiac NM exams in prior 12 months: This patient has received [address] and 0 known cardiac nuclear medicine studies in the 12 months prior to the current study. COMPARISON: CT facial bones wo con* 01/15/2023 12:21 AM RADIATION DOSE METRICS: Total DLP (mGy-cm): 920.28 FINDINGS: Brain: No acute intracranial hemorrhage, acute large territory infarct, or obvious mass lesion. Age appropriate diffuse cerebral volume loss. Chronic white matter changes, likely to be chronic small vessel ischemic changes. Cerebral ventricles: No ventriculomegaly. Paranasal sinuses: Visualized sinuses are unremarkable. No fluid levels. Mastoid air cells: Visualized mastoid air cells are well aerated. Bones/joints: Unremarkable. No acute fracture. Soft tissues: Unremarkable. CT/CT head wo con* [id number] IMPRESSION: No acute intracranial abnormality.
--- NOTE | 2023-01-14 23:49 | XRR_ITS ---
PROCEDURE INFORMATION: Exam: XR Left Humerus Exam date and time: 01/15/2023 12:06 AM Age: 87 years old Clinical indication: Injury or trauma; Fall; Blunt trauma (contusions or hematomas); Shoulder; Left; Additional info: Fall injury TECHNIQUE: Imaging protocol: Radiologic exam of the left humerus. Views: 2 or more views. COMPARISON: Left shoulder 01/14/2023 11:53 PM FINDINGS: Bones/joints: Acute, moderately displaced fracture of the proximal left humeral neck. Humerus otherwise intact and unremarkable. Soft tissues: Normal. XR/[place] [id number] IMPRESSION: Acute, moderately displaced fracture of the proximal left humeral neck.
--- NOTE | 2023-01-14 23:49 | CTR_ITS ---
PROCEDURE INFORMATION: Exam: CT Cervical Spine Without Contrast Exam date and time: 01/15/2023 12:18 AM Age: 87 years old Clinical indication: Injury or trauma; Fall; Additional info: Fall injury TECHNIQUE: Imaging protocol: Computed tomography of the cervical spine without contrast. Radiation optimization: All CT scans at this facility use at least one of these dose optimization techniques: automated exposure control; mA and/or kV adjustment per patient size (includes targeted exams where dose is matched to clinical indication); or iterative reconstruction. REPORTING DATA: Count of CT and Cardiac NM exams in prior 12 months: This patient has received [address] and 0 known cardiac nuclear medicine studies in the 12 months prior to the current study. COMPARISON: CT neck w con* 03/26/2022 11:12 AM RADIATION DOSE METRICS: Total DLP (mGy-cm): 188.47 FINDINGS: Bones/joints: No acute fracture or subluxation. [id number] chronic degenerative changes without severe spinal stenosis. Lungs: Chronic emphysematous changes noted at the lung apices. Minimal biapical scarring. Thyroid: A subcentimeter left thyroid nodule; no routine follow-up recommended. Soft tissues: Unremarkable. CT/CT cervical spin wo con* [id number] IMPRESSION: No acute findings.
--- NOTE | 2023-01-14 23:50 | ECG_ITS ---
[facility] Test Date: 2023-01-14 Pat Name: Padmini Deras Department: Room: Gender: Female Safety Officer: : 1935 Requested By: Javier Hanley Order Number: [id number] Phillip MD: Joon Glaser M.D. Measurements Intervals Delaplane Rate: 80 P: 21 DE: 159 QRS: -8 QRSD: 83 T: 3 QT: 371 QTc: 430 Interpretive Statements SINUS RHYTHM POSSIBLE LEFT ATRIAL ENLARGEMENT [-0.1mV P-WAVE IN V1/V2] POSSIBLE RIGHT VENTRICULAR CONDUCTION DELAY [RSR (QR) IN V1/V2] No previous ECG available for comparison Electronically Signed On 01-15-2023 23:15:24 [employer]DRA[employer]INNER by Joon Glaser M.D. [email or web address]
--- NOTE | 2023-01-14 23:51 | W.ED.FALL ---
HPI - Fall General: Chief Complaint: Fall Stated Complaint: left shoulder injury Time Seen by Provider: 01/14/23 23:43 History of Present Illness: 87-year-old female comes in today for fall injury. Patient reports she was going to the bathroom when she tripped and fell striking her face and head against the toilet and then hitting her shoulder against the ground. Patient reports pain with movement of the shoulder. Patient has bruising to her nasal bridge. Patient is alert talkative. Patient appears nontoxic. Patient admits that she has had surgery to her left foot which causes her to stumble and she also has significant arthritis to her left knee. Patient denies any chest pain, shortness of breath, or other abnormalities. Patient takes medications for allergies and GERD. Patient has had a recent endoscopy procedure for her GERD. Patient denies any loss of consciousness. Associated symptoms-after fall: Denies chest pain Review of Systems General: Reports: 10 or more systems reviewed and unremarkable except in HPI and below Const: Denies: fever(s) Card: Denies: chest pain Resp: Denies: dyspnea GI: Denies: nausea, vomiting, diarrhea or excessive flatus Musc: Reports: extremity pain and joint pain (Left shoulder) Skin/Breast: Denies: rash PFSH ED PFSH: Medical History Anxiety Esophageal stricture GERD (gastroesophageal reflux disease) Hiatal hernia Surgical History History of colonoscopy History of esophagogastroduodenoscopy (EGD) Social History Quit status (tobacco/nicotine): has quit using Second hand smoke exposure: No Alcohol intake: never Substance/Drug Use: never Lives independently: Yes Physical Exam Const: COMMON NORMALS: alert HENMT: NOSE: Normal nares present and Other nasal findings present (Nasal bridge swelling and bruising) MOUTH: Normal oral and palatal mucosa present THROAT: posterior oropharynx normal Neck/C-Spine: COMMON NORMALS: full ROM Chest: COMMONS NORMALS: normal palpation of entire chest wall Resp: COMMON NORMALS: normal respiratory effort and clear to auscultation bilaterally AUSCULTATION: clear to auscultation bilaterally Cardio: COMMON NORMALS: regular rate and regular rhythm RATE: regular rate RHYTHM: regular rhythm GI: COMMON NORMALS: Soft to palpation and non-tender PALPATION: Yes Soft to palpation Back/Pelvis: COMMON NORMALS: thoracic and lumbar spine normal to inspection Extremity: LEFT UPPER EXTREMITY: Yes shoulder joint (Crepitus left shoulder joint with range of motion) Neuro: SENSORIUM/ORIENTATION: Yes alert Skin: COMMON NORMALS: turgor normal GENERAL SKIN EXAM: turgor normal Course Vital Signs: Vital signs: Vital Signs Pulse Rate 83 01/15/23 00:43 Respiratory Rate 20 H 01/15/23 00:43 Blood Pressure 173/98 01/15/23 00:43 Pulse Oximetry 98 01/15/23 00:43 Oxygen Delivery Me thod Room Air 01/15/23 00:43 MDM - Fall Medical Decision Making 87-year-old female comes in today for evaluation of injury sustained during a fall at home when she tripped/stumbled in the bathroom striking her head against the toilet and landing on her left shoulder. Evaluation notes bruising and swelling to the nasal bridge. Pupils are equal and reactive. Bilateral TMs are normal. Patient moves all extremities well except the left shoulder joint. Patient has some crepitus noted with movement of the left shoulder joint. Exacerbation of pain with abduction. Distal pulses and sensation are intact. Vital signs normal except for some elevated blood pressure. Differential diagnosis includes but not limited to fracture, sprain, dislocation, contusion, intracranial bleeding, urinary tract infection, anemia. CT scan of the head, neck, and facial bones were negative for any acute abnormality. X-ray of the left shoulder and humerus noted a proximal humeral fracture with moderate displacement. Patient was written prescriptions for pain medication. Case management was consulted for follow-up with orthopedist. Patient reported understanding of care plan with recommendations for follow-up. Patient was stable and discharged home. Lab Data 01/14/23 23:55 01/14/23 23:55 Radiology Impressions Cervical Spine CT 01/14/23 23:49 IMPRESSION: No acute findings. Face CT 01/14/23 23:49 IMPRESSION: No acute findings. Head CT 01/14/23 23:49 IMPRESSION: No acute intracranial abnormality. Humerus X-Ray 01/14/23 23:49 IMPRESSION: Acute, moderately displaced fracture of the proximal left humeral neck. Shoulder X-Ray 01/14/23 23:49 IMPRESSION: Acute fracture through the proximal left humeral neck, with extension to the inferior aspect of the greater tuberosity. Laboratory Results WBC 13.32 10^3/uL (3.29-11.43) H 01/14/23 23:55 RBC 4.30 10^6/uL (3.85-5.65) 01/14/23 23:55 Hgb 11.80 g/dL (11.27-16.99) 01/14/23 23:55 Hct 38.0 % (36-47) 01/14/23 23:55 MCV 88.4 fl (85-98) 01/14/23 23:55 MCH 27.4 pg (27-33) 01/14/23 23:55 MCHC 31.1 g/dL (30-55) 01/14/23 23:55 RDW 14.6 % (12.1-15.1) 01/14/23 23:55 Plt Count 197 10^3/cmm (157-399) 01/14/23 23:55 MPV 10.0 fL (7.4-10.4) 01/14/23 23:55 Neut % (Auto) 39.3 % 01/14/23 23:55 Lymph % (Auto) 53.0 % 01/14/23 23:55 [place] % (Auto) 6.2 % 01/14/23 23:55 Eos % (Auto) 1.1 % 01/14/23 23:55 Baso % (Auto) 0.2 % 01/14/23 23:55 Neut # (Auto) 5.23 10^3/uL (1.8-7.7) 01/14/23 23:55 Lymph # (Auto) 7.1 10^3/uL (0.8-4.8) H 01/14/23 23:55 [place] # (Auto) 0.8 10^3/uL (0.2-0.9) 01/14/23 23:55 Eos # (Auto) 0.1 10^3/uL (0.0-0.8) 01/14/23 23:55 Baso # (Auto) 0.0 10^3/uL (0.0-0.1) 01/14/23 23:55 Nucleated RBC % (auto) 0 % 01/14/23 23:55 Nucleated RBCs # 0.0 /100WBC 01/14/23 23:55 Sodium 140 mmol/L (136-145) 01/14/23 23:55 Potassium 3.5 mmol/L (3.5-5.1) 01/14/23 23:55 Chloride 100 mmol/L (98-107) 01/14/23 23:55 Carbon Dioxide 30 mmol/L (22-29) H 01/14/23 23:55 Anion Gap 13.5 (5-19) 01/14/23 23:55 BUN 5 mg/dL (8-23) L 01/14/23 23:55 Creatinine 0.6 mg/dL (0.5-0.9) 01/14/23 23:55 GFR Calculation Not Reportable 01/14/23 23:55 Glucose 147 mg/dL (65-115) H 01/14/23 23:55 Calculated Osmolality 290 mOsm/kg (285-295) 01/14/23 23:55 Calcium 9.0 mg/dL (8.5-10.5) 01/14/23 23:55 Total Bilirubin 0.3 mg/dL (0.15-1.2) 01/14/23 23:55 AST 20 U/L (0-32) 01/14/23 23:55 ALT 12 U/L (0-33) 01/14/23 23:55 Alkaline Phosphatase 128 U/L (35-105) H 01/14/23 23:55 Total Protein 6.2 g/dL (6.6-8.7) L 01/14/23 23:55 Albumin 3.9 g/dL (3.5-5.2) 01/14/23 23:55 Globulin 2.3 g/dL (1.3-4.6) 01/14/23 23:55 Urine Color Colorless (Yellow) 01/15/23 00:41 Urine Appearance Clear (CLEAR) 01/15/23 00:41 Urine pH 7 (5-7) 01/15/23 00:41 Ur Specific [place] 1.010 (1.005-1.030) 01/15/23 00:41 Urine Protein Neg (Negative) 01/15/23 00:41 Urine Glucose (UA) Norm (Normal) 01/15/23 00:41 Urine Ketones Negative (Negative) 01/15/23 00:41 Urine Blood Neg (Negative) 01/15/23 00:41 Urine Nitrate Negative (Negative) 01/15/23 00:41 Urine Bilirubin Neg (Negative) 01/15/23 00:41 Urine Urobilinogen Neg mg/dL (Negative) 01/15/23 00:41 Ur Leukocyte Esterase Negative (Negative) 01/15/23 00:41 All radiology interpretation(s) finalized by discharge EKG Data EKG 1: EKG interpretation date: 01/14/23 EKG interpretation time: 23:56 Prior EKG tracings: not available for review Interpretation: Sinus rhythm, regular rate at 80 bpm, no ST elevation, no ectopy. No prior exam was available for immediate comparison. Computer generated interpretation: Sinus rhythm, possible left atrial enlargement, possible right ventricular conduction delay, borderline EKG, unconfirmed report. Discharge Plan Discharge Patient Disposition: Home Clinical Impression: Fracture, humerus, proximal Qualifiers: Encounter type: initial encounter Fracture type: closed Fracture morphology: other fracture Fracture alignment: displaced Laterality: right Qualified Code(s): S42.291A - Other displaced fracture of upper end of right humerus, initial encounter for closed fracture Condition: Stable Prescriptions: New hydrocodone-acetaminophen 7.5-325 mg/15 mL solution 15 ml PO Q8H PRN (Reason: pain (scale score 7-10)) Qty: 150 0RF No Action pantoprazole [Protonix] 40 mg tablet,delayed release (DR/EC) 40 mg PO BID 14 Days Qty: 28 0RF acetaminophen [Tylenol] 325 mg Tablet 325 mg PO QID PRN (Reason: Pain) montelukast 5 mg tablet,chewable 5 mg PO BID buspirone 10 mg tablet 5 mg PO BID fluticasone propionate 50 mcg/actuation spray,suspension 2 spray INTRANASAL DAILY fluconazole 200 mg tablet 200 mg PO DAILY Discharge Orders: Discharge ED (Routine); Ordered 01/15/23 Ordered By: Javier Cavazos Referrals: Delmar Ni MD [Primary Care Provider] - Discharge Diet: Usual diet Discharge Activity: Increase activity as tolerated Patient Instructions: Arm Fracture in Adults (ED), Opioid Safety, Pain Management Activity Restrictions/Additional Instructions: Use sling for comfort. Use ice or heat for further pain relief. Use acetaminophen or ibuprofen to control pain. Use hydrocodone for severe pain. Follow-up with primary care as needed. Case management will contact you regarding follow-up appointment with orthopedic surgeon for further evaluation and treatment of fracture arm. Coding Level of Care Code ED [employer] Consultant for Delia Hammer
[2023-01-15 00:02] LABS: Basophils % 0.2 %; Eosinophils # 0.1 10^3/uL (0.0-0.8); Eosinophils % 1.1 %; Lymphocytes # 7.1 10^3/uL (0.8-4.8); Mean Corpuscular HGB Conc 31.1 g/dL (30-55); Mean Corpuscular Hemoglobin 27.4 pg (27-33); Mean Corpuscular Volume 88.4 fl (85-98); Monocytes # 0.8 10^3/uL (0.2-0.9); Monocytes % 6.2 %; Neutrophils # 5.23 10^3/uL (1.8-7.7); Neutrophils % 39.3 %; Nucleated Red Blood Cells % 0 %; Platelet Count 197 10^3/cmm (157-399); Red Cell Distribution Width 14.6 % (12.1-15.1); White Blood Count 13.32 10^3/uL (3.29-11.43)
[2023-01-15 00:18] LABS: Alanine Aminotransferase 12 U/L (0-33); Albumin Level 3.9 g/dL (3.5-5.2); Alkaline Phosphatase 128 U/L (35-105); Anion Gap 13.5 (5-19); Aspartate Amino Transferase 20 U/L (0-32); Blood Urea Nitrogen 5 mg/dL (8-23); Carbon Dioxide 30 mmol/L (22-29); Chloride 100 mmol/L (98-107); Globulin 2.3 g/dL (1.3-4.6); Glucose 147 mg/dL (65-115); Osmolality Calculated 290 mOsm/kg (285-295); Potassium 3.5 mmol/L (3.5-5.1); Sodium 140 mmol/L (136-145); Total Bilirubin 0.3 mg/dL (0.15-1.2); Total Protein 6.2 g/dL (6.6-8.7)
[2023-01-15 00:33] LABS: Slide Review Slide Review Perform
[2023-01-15 00:43] VITALS: BP 173/98; PULSE 83; RESP 20; O2SAT 98
[2023-01-15 00:45] LABS: Add Urine Microscopic? NO; Charge for UA Resulting for Rev
[2023-01-15] MEDS: HYDROcodone-APAP 7.5-325 mg/15 mL UDC 7.5 ML PO (00:46)
[2023-01-15 00:50] LABS: Urine Appearance Clear (CLEAR); Urine Color Colorless (Yellow)
[2023-01-15 00:51] LABS: Bilirubin Urine Neg (Negative); Blood Urine Neg (Negative); Glucose Urine UA Norm (Normal); Ketones Urine Negative (Negative); Leukocyte Esterase Urine Negative (Negative); Nitrate Urine Negative (Negative); Protein Urine Neg (Negative); Urobilinogen Urine Neg (Negative); pH Urine 7 (5-7)
[2023-01-15 01:21] VITALS: BP 174/94; PULSE 86; RESP 16; O2SAT 86
--- NOTE | 2023-01-15 18:18 | DCPLANNER ---
message sent to ortho for follow up on a proximal humeral fx
== END 2023-01-15 01:23 | disposition home or self-care (01) ==
PROVIDERS: Emergency Provider Nurse Practitioner Family; PCP Family Medicine
DX: S42.212A Unspecified displaced fracture of surgical neck of left humerus, initial encounter for closed fracture (principal); Z87.891 Personal history of nicotine dependence; W01.198A Fall on same level from slipping, tripping and stumbling with subsequent striking against other object, initial encounter
CPT/HCPCS: 70450; 70486; 72125; 73030; 73060; 80053; 81003; 85025; 93005; 99285

== ENCOUNTER → 2023-01-18 09:14 | Outpatient (BNVA) | payer MEDICARE, SELFPAY | PROVIDERS: PCP Family Medicine; Referring Provider Nurse Practitioner Family; Visit Provider Nurse Practitioner | DX: S42.222A 2-part displaced fracture of surgical neck of left humerus, initial encounter for closed fracture; W19.XXXA Unspecified fall, initial encounter; Y92.009 Unspecified place in unspecified non-institutional (private) residence as the place of occurrence of the external cause; Z46.89 Encounter for fitting and adjustment of other specified devices; S42.209D Unspecified fracture of upper end of unspecified humerus, subsequent encounter for fracture with routine healing; X58.XXXD Exposure to other specified factors, subsequent encounter | CPT/HCPCS: 23600; 73030; 97760; 99204; L3670 ==

== ENCOUNTER 2023-01-18 11:03 | Outpatient (CLI) | payer MEDICARE, SELFPAY | END 2023-01-18 11:04 | disposition home or self-care (01) | LOC: SPT 11:04 | PROVIDERS: PCP Family Medicine; Visit Provider Nurse Practitioner | DX: Z46.89 Encounter for fitting and adjustment of other specified devices (principal); S42.209D Unspecified fracture of upper end of unspecified humerus, subsequent encounter for fracture with routine healing; X58.XXXD Exposure to other specified factors, subsequent encounter; S42.222A 2-part displaced fracture of surgical neck of left humerus, initial encounter for closed fracture; W19.XXXA Unspecified fall, initial encounter; Y92.009 Unspecified place in unspecified non-institutional (private) residence as the place of occurrence of the external cause | CPT/HCPCS: 23600; 97760; 99204; L3670 ==

== ENCOUNTER → 2023-02-15 09:41 | Outpatient (BNVA) | payer MEDICARE, SELFPAY | PROVIDERS: PCP Family Medicine; Visit Provider Nurse Practitioner | DX: S42.222A 2-part displaced fracture of surgical neck of left humerus, initial encounter for closed fracture; W19.XXXA Unspecified fall, initial encounter; Y92.009 Unspecified place in unspecified non-institutional (private) residence as the place of occurrence of the external cause | CPT/HCPCS: 73030; 99024 ==

== ENCOUNTER → 2023-03-08 08:55 | Outpatient (BNVA) | payer MEDICARE, SELFPAY | PROVIDERS: PCP Family Medicine; Visit Provider Nurse Practitioner | DX: S42.222A 2-part displaced fracture of surgical neck of left humerus, initial encounter for closed fracture; W19.XXXA Unspecified fall, initial encounter; Y92.009 Unspecified place in unspecified non-institutional (private) residence as the place of occurrence of the external cause | CPT/HCPCS: 73030; 99024 ==

== ENCOUNTER 2023-03-27 08:23 | Day surgery (SDC) | payer MEDICARE, SELFPAY ==
[2023-03-27 08:36] VITALS: BP 176/103; PULSE 98; RESP 18; TEMP 36.7; O2SAT 93; BMI 19.6
[2023-03-27] MEDS: sodium chloride 0.9% 1,000 ML 30 ML IV (08:47)
--- NOTE | 2023-03-27 08:56 | ANES.PREANE2 ---
Pre-Anesthetic Assessment Height/Weight: Height 1.55 m Weight 47.174 kg Temp Pulse Resp BP Pulse Ox O2 Del Method 98.0 F 98 18 176/103 93 Room Air 03/27/23 08:36 03/27/23 08:36 03/27/23 08:36 03/27/23 08:36 03/27/23 08:36 03/27/23 08:36 Operation Date: 03/27/23 09:45 [place] Procedures p [id number] EGD balloon dialation K21.9,k22.2(Not Applicable) - Adria Nguyen DO Last intake: Intake Last Liquid Date 03/26/23 Last Liquid Time 23:30 Last Solid Date 03/26/23 Last Solid Time 17:00 Social No alcohol and No tobacco Exam alert, oriented x 3, clear to auscultation bilaterally and regular rate & rhythm Airway Submandibular: within normal limits Cervical ROM: within normal limits Mallampati: Class I Dentition: full History/ROS No significant history except as noted and No significant complaints Pulmonary None reported CV/HEM None reported None reported Hepatic None reported GI Gastroesophageal Reflux Disease and Hiatal Hernia Metabolic None reported Musc/skel None reported Neuropsych Anxiety Anesthetic Plan ASA status: 2 Anesthesia: MAC Risk of > 500 ml blood loss (7ml/kg in children): No Medications/Allergies Home Medications Medication Instructions Recorded Confirmed Last Taken Type acetaminophen 325 mg tablet 975 mg PO QID PRN Pain 08/16/20 03/25/23 03/24/23 History (Tylenol) buspirone 10 mg tablet 5 mg PO BID 12/20/21 03/27/23 03/26/23 History fluticasone propionate 50 2 spray intranasal DAILY 12/20/21 03/27/23 03/26/23 History mcg/actuation nasal spray,suspension montelukast 5 mg chewable tablet 10 mg PO DAILY 12/20/21 03/27/23 03/26/23 History hydrocodone 7.5 mg-acetaminophen 15 ml PO Q8H PRN pain (scale score 01/15/23 03/25/23 Unknown Rx 325 mg/15 mL oral solution 7-10) #150 mL shoulder immobilizer #1 ea 01/18/23 03/08/23 Unknown Rx pantoprazole 40 mg tablet,delayed 40 mg PO BID 30 days #60 tabs 03/19/23 03/27/2303/26/24 Rx release (Protonix) lysine 1,000 mg tablet 1,000 mg PO DAILY 03/25/23 03/27/23 03/26/23 History Allergies Allergy/AdvReac Type Severity Reaction Status Date / Time Penicillins Allergy Unknown Verified 03/08/23 09:17 Current Medications Generic Name Dose Route Start Last Admin Trade Name Freq PRN Reason Stop Dose Admin Sodium Chloride 1,000 mls @ 30 mls/hr 03/27/23 08:30 03/27/23 08:47 Sodium Chloride 0.9% IV 03/28/23 08:29 30 mls/hr .Q24H JOSEPHINE Administration PFS Anesthesia Medical History Fall at home Humeral surgical neck fracture Anxiety GERD (gastroesophageal reflux disease) Hiatal hernia Esophageal stricture Surgical History History of colonoscopy History of esophagogastroduodenoscopy (EGD) Social History Quit status (tobacco/nicotine): has quit using Second hand smoke exposure: No Alcohol intake: never Substance/Drug Use: never Lives independently: Yes Data Anesthesia Cardiac Studies: No Data to Display
--- NOTE | 2023-03-27 09:04 | PM.HP ---
Providers/Chief Complaint Primary Care Provider: Delmar Ni MD Chief Complaint: K21.9, K22.2 History of Present Illness Padmini Deras is a 88 year old female Review of Systems General: Reports: 10 or more systems reviewed and unremarkable except in HPI and below Medications/Allergies Home Medications Medication Instructions Recorded Confirmed Last Taken Type acetaminophen 325 mg tablet 975 mg PO QID PRN Pain 08/16/20 03/25/23 03/24/23 History (Tylenol) buspirone 10 mg tablet 5 mg PO BID 12/20/21 03/27/23 03/26/23 History fluticasone propionate 50 2 spray intranasal DAILY 12/20/21 03/27/23 03/26/23 History mcg/actuation nasal spray,suspension montelukast 5 mg chewable tablet 10 mg PO DAILY 12/20/21 03/27/23 03/26/23 History hydrocodone 7.5 mg-acetaminophen 15 ml PO Q8H PRN pain (scale score 01/15/23 03/25/23 Unknown Rx 325 mg/15 mL oral solution 7-10) #150 mL shoulder immobilizer #1 ea 01/18/23 03/08/23 Unknown Rx pantoprazole 40 mg tablet,delayed 40 mg PO BID 30 days #60 tabs 03/19/23 03/27/23 03/26/23 Rx release (Protonix) lysine 1,000 mg tablet 1,000 mg PO DAILY 03/25/23 03/27/23 03/26/23 History Allergies Allergy/AdvReac Type Severity Reaction Status Date / Time Penicillins Allergy Unknown Verified 03/08/23 09:17 PFSH Acute PFSH: Medical History (Updated 03/27/23 @ 09:05 by Adria Nguyen DO) Esophageal stricture Fall at home Humeral surgical neck fracture Anxiety GERD (gastroesophageal reflux disease) Hiatal hernia Surgical History History of colonoscopy History of esophagogastroduodenoscopy (EGD) Social History Quit status (tobacco/nicotine): has quit using Second hand smoke exposure: No Alcohol intake: never Substance/Drug Use: never Lives independently: Yes Vitals/I&O/Wt Last Vital Signs Temp 98.0 F 03/27/23 08:36 Pulse 98 03/27/23 08:36 Resp 18 03/27/23 08:36 BP 176/103 03/27/23 08:36 Pulse Ox 93 03/27/23 08:36 O2 Del Method Room Air 03/27/23 08:36 Weight last 48 hrs Weight 104 lb A&P Assessment and plan (1) Dysphagia: (2) Esophageal stricture: Plan EGD with balloon dilation The risks and benefits of the procedure, including bleeding, infection, intestinal perforation requiring surgery, missed lesion were explained to the patient. The patient is understanding of the risks and wishes to proceed. Attestations Medical Necessity Statement*: Home Coding Level of Care Code Acute Code for Chg Fwd Diagnoses Dysphagia R13.10 Esophageal stricture K22.2
[2023-03-27 09:35] VITALS: BP 140/88; PULSE 70; RESP 16; TEMP 36.1; O2SAT 94
[2023-03-27 09:40] VITALS: BP 153/99; PULSE 61; RESP 16; O2SAT 96
[2023-03-27 09:50] VITALS: BP 198/124; PULSE 57; RESP 18; O2SAT 93
--- NOTE | 2023-03-27 09:59 | PC.NURSE ---
blood pressure 198/124. Dr. Nguyen and Luke MCNALLY notified. no further instructions/interventions at this time. Ok to discharge per physician. Patient/daughter encouraged to monitor BP and be vigilant for signs/symptoms of stroke or heart attack. Also encouraged to discuss with primary care physician for further evaluation.
--- NOTE | 2023-03-27 14:11 | ANE.PACU2 ---
Inpatient post-anesthesia follow up: Airway intact: Yes Vital signs: Temperature 97.0 F Pulse Rate 57 Respiratory Rate 18 Blood Pressure 198/124 Pulse Oximetry 93 Oxygen Delivery Me thod Room Air Oxygen Flow Rate 5 Fraction of Inspir ed Oxygen Hydration adequate: Yes Nausea and vomiting: No Pain level: 1 Mental status: Baseline
== END 2023-03-27 10:21 | disposition home or self-care (01) ==
PROVIDERS: PCP Family Medicine; Visit Provider Surgery
DX: R13.10 Dysphagia, unspecified (principal); K22.2 Esophageal obstruction; K44.9 Diaphragmatic hernia without obstruction or gangrene; F41.9 Anxiety disorder, unspecified; K21.9 Gastro-esophageal reflux disease without esophagitis; Z87.891 Personal history of nicotine dependence
CPT/HCPCS: 43249; J2704; J3490; J7030

== ENCOUNTER → 2023-04-19 08:13 | Outpatient (BNVA) | payer MEDICARE, SELFPAY | PROVIDERS: PCP Family Medicine; Visit Provider Surgery | DX: Z09 Encounter for follow-up examination after completed treatment for conditions other than malignant neoplasm (principal); K22.2 Esophageal obstruction; S42.222A 2-part displaced fracture of surgical neck of left humerus, initial encounter for closed fracture; W19.XXXA Unspecified fall, initial encounter; Y92.009 Unspecified place in unspecified non-institutional (private) residence as the place of occurrence of the external cause | CPT/HCPCS: 73030; 99213; 99214 ==